=== PATIENT | female | born 1960 | race Caucasian/White ===

== ENCOUNTER 2020-05-20 18:35 | Emergency (ER) | payer BC, OTHER ==
[2020-05-20 18:42] VITALS: RESP 18; TEMP 97.6
[2020-05-20] MEDS ORDERED: MORPHINE SULFATE 4 MG/ML SYRINGE IVP STA (19:23)
--- NOTE | 2020-05-20 19:52 | ED ---
Lower Extremity Injury HPI - General Chief Complaint: Extremity Injury, Lower Stated Complaint: Fall Source: EMS Mode of arrival: EMS Limitations: no limitations - History of Present Illness Initial Comments: 59-year-old female with PMH, HTN, HLD, obesity, objective sleep apnea presenting today for chief complaint of right knee pain after fall. Patient states that she is attempting to get into her truck when her foot slipped off of the step and onto the ground. She states that she got up and felt like the knee buckled she states it did not dislocate that it felt unstable. Patient sates she was unable to weight-bear she's had in the truck was able to moves her called 911 to transport her to the hospital for evaluation. Patient denies any numbness tingling or loss of sensation coolness pill or of the extremity. She states she is not able to extend on her own. Patient denies any injury to the head and neck abdomen chest. Patient denies ankle or foot pain, denies pain in hip or thigh. Patient has no additional complaints. appears well on arrival in no distress. initially REFUSED PAIN MEDICATIONS, staets she wanted XR results first. - Related Data Home Medications Medication Instructions Recorded Confirmed Levothyroxine Sodium [Synthroid] 150 mcg PO DIRECTED 02/15/14 04/11/15 Multivitamins, Thera [Multivitamin] 1 tab PO DAILY 07/05/14 04/11/15 Calcium Carbonate [Calcium] 500 mg PO BID 09/06/14 04/11/15 Levothyroxine Sodium [Levoxyl] 135 mcg PO DIRECTED 09/06/14 04/11/15 Ergocalciferol [Vitamin D2] 5,000 unit PO DAILY 04/11/15 04/11/15 Previous Rx's Medication Instructions Recorded Loratadine-Pseudoeph 5-120 mg 1 each PO Q12HR #30 tab 12/06/14 [Claritin-D 12 HR] Omeprazole [PriLOSEC] 40 mg PO AC-BRKFST #90 cap 12/06/14 Vitamin A 8,000 unit PO DAILY #30 capsule 03/10/15 Loratadine-Pseudoeph 5-120 mg 1 each PO Q12HR #30 tab 04/11/15 [Claritin-D 12 HR] Omeprazole [PriLOSEC] 40 mg PO AC-BRKFST #90 cap 05/11/15 Allergies Allergy/AdvReac Type Severity Reaction Status Date / Time Egg Derived Allergy Rash/Hives Verified 04/11/15 14:18 indomethacin [From Indocin] Allergy Unknown Verified 04/11/15 14:18 indomethacin sodium Allergy Unknown Verified 04/11/15 14:18 [From Indocin] orange juice [[place] Juice] Allergy Swelling Verified 04/11/15 14:18 penicillinase [Penicillinase] Allergy Rash/Hives Verified 04/11/15 14:18 beef derived (bovine) AdvReac Dyspnea Verified 04/11/15 14:18 chocolate flavor AdvReac Dyspnea Verified 04/11/15 14:18 Review of Systems ROS Statement: Those systems with pertinent positive or pertinent negative responses have been documented in the HPI. ROS Other: All systems not noted in ROS Statement are negative. Past Medical History Past Medical History: Asthma, GERD/Reflux, Hyperlipidemia, Hypertension, Osteoarthritis (OA), Sleep Apnea/CPAP/BIPAP Additional Past Medical History / Comment(s): Other HX: Obesity, partially paralized vocal cord, vertigo, PAST HX ASTHMA History of Any Multi-Drug Resistant Organisms: None Reported Past Surgical History: Bariatric Surgery, Section, Hysterectomy, Orthopedic Surgery Additional Past Surgical History / Comment(s): 06/04/14 Laparoscopic sleeve gastrectomy. thyroidectomy, lt knee surgery/meniscus repair, left shoulder torn rotator cuff, Gastric sleeve 06/10/14 Past Anesthesia/Blood Transfusion Reactions: Motion Sickness Past Psychological History: No Psychological Hx Reported Smoking Status: Never smoker Past Alcohol Use History: Occasional Past Drug Use History: None Reported - Past Family History Mother Family Medical History: Diabetes Mellitus, GERD/Reflux, Hypertension Father Family Medical History: Coronary Artery Disease (CAD), GERD/Reflux, Hypertension General Exam - General Exam Comments Initial Comments: General: The patient is awake and alert, in no distress Eye: Pupils are equal, round and reactive to light, extra-ocular movements are intact. No nystagmus. There is normal conjunctiva bilaterally. No signs of icterus. Ears, nose, mouth and throat: There are moist mucous membranes and no oral lesions. Neck: The neck is supple, there is no tenderness or JVD. Cardiovascular: There is a regular rate and rhythm. No murmur, rub or gallop is appreciated. Respiratory: Lungs are clear to auscultation, respirations are non-labored, breath sounds are equal. No wheezes, stridor, rales, or rhonchi. Musculoskeletal: On extraction of the knees bilaterally. Equal no gross deformity. Patient cannot extend the right knee no pedal patient of the medial or lateral malleolus. No pain along the anterior posterior thigh no hip pain to palpation or compression. Strength 5/5 at the foot and ankle. Sensation intact proximal and distal to injury site. Radial and DP pulses equal bilaterally 2+. Neurological: A&O x 3. CN II-XII intact grossly, There are no obvious motor or sensory deficits. Coordination appears grossly intact. Speech is normal. Skin: Skin is warm and dry and no rashes or lesions are noted. Psychiatric: Cooperative, appropriate mood & affect, normal judgment. Limitations: no limitations Course Vital Signs 05/20/20 18:37 Temperature 97.6 F Pulse Rate 100 Respiratory 18 Rate Blood Pressure 148/90 O2 Sat by Pulse 95 Oximetry Medical Decision Making - Medical Decision Making 59yo female presenting for cc of right knee pain. Patient denies dislocation. Patient neurovascularly intact. Imaging studies revealed a lateral depressed tibial plateau fracture, the fracture does extend distally. This images personally read and reviewed by attending provider, as well as our on-call orthopedic surgeon Dr. Sheth, who recommended transfer to [facility]. Patient agreeable to transfer. Placed in knee immobilizer, remains neurovascularly intact and was discharged appearing well The patient refused pain medications but was willing to accept that after imaging studies resulted. Disposition Clinical Impression: Tibial plateau fracture, right, Fall Disposition: TRANSFER TO PSYCH HOSP/UNIT Condition: Stable Is patient prescribed a controlled substance at d/c from ED?: No Referrals: Javier Raza DO [Primary Care Provider] - 1-2 days Time of Disposition: 19:51 Decision to Admit Reason: Admit from EC Decision Date: 05/20/20 Decision Time: 19:51
--- NOTE | 2020-05-20 19:57 | XR ---
EXAMINATION TYPE: XR knee complete RT DATE OF EXAM: 05/20/2020 COMPARISON: NONE HISTORY: Knee pain. Fall. TECHNIQUE: 3 views FINDINGS: There is vertical fracture through the lateral tibial plateau. There is no significant disp lacement. There is mild depression of the central fragment 5 mm. There is knee joint effusion. Patell a is intact. Medial joint space appears intact. IMPRESSION: Impacted lateral tibial plateau fracture with also vertical fracture through the lateral tibial condyle.
[2020-05-20 19:59] VITALS: BP 142/71; PULSE 89
== END 2020-05-20 20:43 ==
LOC: EC 18:35
DX: S82.141A Displaced bicondylar fracture of right tibia, initial encounter for closed fracture (principal); G47.33 Obstructive sleep apnea (adult) (pediatric); Z99.89 Dependence on other enabling machines and devices; Z90.710 Acquired absence of both cervix and uterus; Z90.89 Acquired absence of other organs; Z88.0 Allergy status to penicillin; Z88.1 Allergy status to other antibiotic agents; Z91.012 Allergy to eggs; Z91.018 Allergy to other foods; W01.0XXA Fall on same level from slipping, tripping and stumbling without subsequent striking against object, initial encounter
CPT/HCPCS: 73562; 99284; 96374; J2270

== ENCOUNTER → 2021-10-21 | Outpatient (CLI) | payer BC ==
[2021-10-21 08:56] LABS: Appearance,Urine Cloudy (Clear); Bacteria,Urine Rare /hpf; Bilirubin,Urine Negative (Negative); Blood,Urine Negative (Negative); Color,Urine Light Yellow; Glucose,Urine (UA) Negative (Negative); Ketones,Urine Negative (Negative); Leukocyte Esterase,Urine Moderate (Negative); Mucus,Urine Rare /hpf; Nitrite,Urine Negative (Negative); Protein,Urine Negative (Negative); RBC,Urine <1 /hpf (0-5); Specific Gravity,Urine 1.016 (1.001-1.035); Squamous Epithelial Cell,Urine 1 /hpf (0-4); Urobilinogen,Urine <2.0 mg/dL (<2.0); WBC,Urine 11 /hpf (0-5)
[2021-10-21 10:36] LABS: HCT 41.9 % (37.2-46.3); HGB 13.5 g/dL (12.0-15.0); MCH 28.7 pg (27.0-32.0); MCHC 32.2 g/dL (32.0-37.0); Mean Platelet Volume 11.1 fL (9.5-12.2); NRBC Per 100 WBC 0 /100 WBCS (0.0-0.0); Platelet Count 244 X 10*3/uL (140-440); RBC 4.71 X 10*6/uL (4.10-5.20); RDW 13.1 % (11.5-14.5); WBC 4.42 X 10*3/uL (4.50-10.00)
[2021-10-21 10:58] LABS: ALT 13 U/L (8-44); AST 16 U/L (13-35); African American GFR (CKD) 113.2 (60.0-200.0); Albumin 4.6 g/dL (3.8-4.9); Albumin/Globulin Ratio 1.92 (1.60-3.17); Alkaline Phosphatase 86 U/L (41-126); Blood Urea Nitrogen 15.9 mg/dL (9.0-27.0); Calcium 9.5 mg/dL (8.7-10.3); Carbon Dioxide 26.7 mmol/L (20.0-27.5); Chloride 102 mmol/L (96-109); Chol/HDL Ratio 3.76 Ratio; Globulin 2.4 g/dL (1.6-3.3); Glucose 85 mg/dL (70-110); LDL Cholesterol,Calculated 142.6 mg/dL (0.0-131.0); Non-African American GFR(CKD) 97.7 (60.0-200.0); Potassium 4.4 mmol/L (3.5-5.5); Sodium 139 mmol/L (135-145); VLDL Calculation 17.42 mg/dL (5.00-40.00)
== END | disposition home or self-care (01) ==
LOC: LABWHC1 07:04
PROVIDERS: ATTEND Family Medicine
DX: Z00.00 Encounter for general adult medical examination without abnormal findings (principal); E03.9 Hypothyroidism, unspecified; E66.9 Obesity, unspecified
CPT/HCPCS: 36415; 80053; 80061; 81001; 82306; 83036; 84439; 84443; 85027; 87086

== ENCOUNTER → 2022-04-14 | Outpatient (CLI) | payer BC ==
[2022-04-14 10:49] LABS: Basophils # (A) 0.03 X 10*3/uL (0.00-0.10); Basophils % (A) 0.7 %; Eosinophils # (A) 0.13 X 10*3/uL (0.04-0.35); Eosinophils % (A) 3.1 %; HCT 39.4 % (37.2-46.3); HGB 12.6 g/dL (12.0-15.0); Immature Grans, Automated 0 %; Lymphocytes # (A) 0.97 X 10*3/uL (0.90-5.00); Lymphocytes % (A) 22.9 %; MCH 28.6 pg (27.0-32.0); MCV 89.5 fL (80.0-97.0); Mean Platelet Volume 10.8 fL (9.5-12.2); Monocytes # (A) 0.33 X 10*3/uL (0.20-1.00); Monocytes % (A) 7.8 %; NRBC Per 100 WBC 0 /100 WBCS (0.0-0.0); Neutrophils # (A) 2.77 X 10*3/uL (1.80-7.70); Neutrophils % (A) 65.5 %; Platelet Count 257 X 10*3/uL (140-440); RDW 14.1 % (11.5-14.5); WBC 4.23 X 10*3/uL (4.50-10.00)
[2022-04-14 11:22] LABS: Erythrocyte Sedimentation Rate 7 mm/Hr (0-30)
[2022-04-14 11:42] LABS: African American GFR (CKD) 112.1 (60.0-200.0); Albumin 4.4 g/dL (3.8-4.9); Albumin/Globulin Ratio 2.12 (1.60-3.17); Anion Gap 11.2 mmol/L (10.00-18.00); BUN/Creat Ratio 18.45 Ratio (12.00-20.00); Blood Urea Nitrogen 11.4 mg/dL (9.0-27.0); Calcium 9.5 mg/dL (8.7-10.3); Carbon Dioxide 26.3 mmol/L (20.0-27.5); Globulin 2.1 g/dL (1.6-3.3); Magnesium 2.3 mg/dL (1.5-2.4); Non-African American GFR(CKD) 96.7 (60.0-200.0); Potassium 5.3 mmol/L (3.5-5.5); T4, Free (Free Thyroxine) 1.49 ng/dL (0.800-1.800); Total Bilirubin 0.4 mg/dL (0.30-1.20); Total Protein 6.4 g/dL (6.2-8.2)
== END | disposition home or self-care (01) ==
LOC: LABWHC1 07:04
PROVIDERS: ATTEND Family Medicine
DX: E03.9 Hypothyroidism, unspecified (principal); E66.9 Obesity, unspecified; E66.3 Overweight; M79.10 Myalgia, unspecified site
CPT/HCPCS: 36415; 80053; 82306; 82550; 82607; 83036; 83735; 84439; 84443; 85025; 85652

== ENCOUNTER → 2022-04-28 | Outpatient (CLI) | payer BC ==
[2022-04-29 01:38] LABS: Basophils # (A) 0.04 X 10*3/uL (0.00-0.10); Basophils % (A) 0.7 %; Eosinophils # (A) 0.08 X 10*3/uL (0.04-0.35); Eosinophils % (A) 1.4 %; HCT 42.2 % (37.2-46.3); HGB 13.7 g/dL (12.0-15.0); Immature Grans, Automated 0.4 %; Lymphocytes # (A) 1.54 X 10*3/uL (0.90-5.00); Lymphocytes % (A) 27.6 %; MCH 29.6 pg (27.0-32.0); MCHC 32.5 g/dL (32.0-37.0); MCV 91.1 fL (80.0-97.0); Mean Platelet Volume 10.9 fL (9.5-12.2); Monocytes # (A) 0.44 X 10*3/uL (0.20-1.00); Monocytes % (A) 7.9 %; NRBC Per 100 WBC 0 /100 WBCS (0.0-0.0); Neutrophils # (A) 3.46 X 10*3/uL (1.80-7.70); Platelet Count 283 X 10*3/uL (140-440); RBC 4.63 X 10*6/uL (4.10-5.20); RDW 14.2 % (11.5-14.5); WBC 5.58 X 10*3/uL (4.50-10.00)
== END | disposition home or self-care (01) ==
LOC: LABWHC1 16:16
PROVIDERS: ATTEND Family Medicine
DX: R89.9 Unspecified abnormal finding in specimens from other organs, systems and tissues (principal)
CPT/HCPCS: 36415; 85025

== ENCOUNTER → 2022-06-22 | Outpatient (CLI) | payer BC ==
[2022-06-23 23:16] LABS: Albumin 4.43 g/dL (3.80-4.90)
== END | disposition home or self-care (01) ==
LOC: LABWHC1 07:24
PROVIDERS: ATTEND Psychiatry & Neurology Neurology
DX: G62.9 Polyneuropathy, unspecified (principal); R53.1 Weakness; R25.2 Cramp and spasm
CPT/HCPCS: 36415; 82550; 84165; 84207; 86334

== ENCOUNTER → 2022-08-05 | Outpatient (CLI) | payer BC ==
--- NOTE | 2022-08-05 11:09 | MR ---
EXAMINATION TYPE: MR lumbar spine wo con DATE OF EXAM: 08/05/2022 COMPARISON: NONE HISTORY: Low back pain into rt buttocks, radiculopathy s1 TECHNIQUE: T1 and T2 axial and sagittal images of the lumbar spine are submitted. FINDINGS: There is no abnormal signal seen within the visualized spinal cord or paraspinal soft tissu es. There is severe scoliosis of the spine. Incidental note made of small Tarlov cysts sacral levels. At T12-L1 there is degenerative disc disease left paracentral and lateral disc protrusion with mild l eft foraminal encroachment and mild effacement of thecal sac. At L1-2 there is moderate to severe degenerative disc disease and moderate right facet arthropathy. M ild right-sided foraminal encroachment. No canal stenosis or discrete disc herniation. At L2-3 there is moderate degenerative disc disease. There is right paracentral lateral disc bulging with moderate right-sided foraminal encroachment. Mild left foraminal protrusion. There is borderline central stenosis with effacement of the anterior margin of thecal sac. At L3-4 there is a Schmorl's nodes involving the endplates of the disc space. Moderate degenerative d isc disease. There is more advanced facet arthropathy and ligamentum flavum hypertrophy. No canal zandra nosis or discrete herniation. Discogenic marrow changes are seen and there is mild left and moderate right foraminal encroachment. Very mild right-sided lateral disc bulging At L4-5 there is vertebral body hemangioma of L4 with mild degenerative disc disease. However there i s advanced facet arthropathy but no disc herniation or canal stenosis. Neural foramina remain patent. At L5-S1 there is there is a grade 1 anterolisthesis of L5 relative to S1. There is moderate to sever e bilateral foraminal encroachment. There is advanced facet arthropathy. Cannot exclude pars defects bilaterally. No discrete disc herniation. IMPRESSION: 1. Multilevel moderate to severe degenerative disc disease most marked at L2-L3. 2. An L5-S1 there is a grade 1 anterolisthesis of L5 relative to S1. There is moderate to severe bila teral foraminal encroachment. 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 3. Multilevel disc bulging and additional mild foraminal encroachment as discussed above. No evidence of canal stenosis.
== END | disposition home or self-care (01) ==
LOC: RADMRIMAIN 09:32
PROVIDERS: ATTEND Psychiatry & Neurology Neurology
DX: M51.16 Intervertebral disc disorders with radiculopathy, lumbar region (principal); M43.16 Spondylolisthesis, lumbar region; M43.17 Spondylolisthesis, lumbosacral region
CPT/HCPCS: 72148

== ENCOUNTER → 2022-11-09 | Outpatient (CLI) | payer BC ==
[2022-11-09 11:06] LABS: HGB 13.3 d/dL (12.0-15.0); MCH 29.8 pg (27.0-32.0); MCHC 33.3 d/dL (32.0-37.0); MCV 89.5 FL (80.0-97.0); Mean Platelet Volume 10.5 FL (9.5-12.2); NRBC Per 100 WBC 0 X 10*3/uL (0.00-0.01); Platelet Count 229 X 10*3/uL (140-440); RBC 4.47 X 10*6/uL (4.10-5.20); RDW 12.9 % (11.5-14.5); WBC 4.78 X 10*3/uL (4.50-10.00)
[2022-11-09 11:43] LABS: ALT 18 U/L (8-44); Blood Urea Nitrogen 11.7 mg/dL (9.0-27.0); Calcium 9.1 mg/dL (8.7-10.3); Chloride 103 mmol/L (96-109); Chol/HDL Ratio 3.58 Ratio; Glucose 85 mg/dL (70-110); LDL Cholesterol,Calculated 128.2 mg/dL (0.0-131.0); Potassium 4.5 mmol/L (3.5-5.5); Sodium 141 mmol/L (135-145); T4, Free (Free Thyroxine) 1.81 ng/dL (0.80-1.80)
[2022-11-09 11:54] LABS: Appearance,Urine Clear (Clear); Bilirubin,Urine Negative (Negative); Blood,Urine Negative (Negative); Color,Urine Yellow (Yellow); Ketones,Urine Negative (Negative); Nitrite,Urine Negative (Negative); Specific Gravity,Urine 1.028 (1.001-1.030)
== END | disposition home or self-care (01) ==
LOC: LABWHC1 07:12
PROVIDERS: ATTEND Family Medicine
DX: Z00.00 Encounter for general adult medical examination without abnormal findings (principal); E03.9 Hypothyroidism, unspecified; E66.9 Obesity, unspecified; E83.42 Hypomagnesemia
CPT/HCPCS: 36415; 80048; 80061; 81003; 82306; 83036; 83735; 84439; 84443; 84460; 85027

== ENCOUNTER → 2022-11-18 | Outpatient (CLI) | payer BC | END | disposition home or self-care (01) | LOC: LABWHC1 07:38 | PROVIDERS: ATTEND Family Medicine | DX: E03.9 Hypothyroidism, unspecified (principal) | CPT/HCPCS: 36415; 84439 ==

== ENCOUNTER → 2023-05-04 | Outpatient (CLI) | payer BC ==
[2023-05-04 13:05] LABS: Basophils # (A) 0.05 X 10*3/uL (0.00-0.10); Basophils % (A) 1.1 %; Eosinophils % (A) 2.2 %; HCT 41.8 % (37.2-46.3); HGB 13.7 g/dL (12.0-15.0); Lymphocytes # (A) 1.09 X 10*3/uL (0.90-5.00); Lymphocytes % (A) 24.5 %; MCH 29.3 pg (27.0-32.0); MCHC 32.8 g/dL (32.0-37.0); MCV 89.5 FL (80.0-97.0); Mean Platelet Volume 10.8 FL (9.5-12.2); Monocytes # (A) 0.36 X 10*3/uL (0.20-1.00); Monocytes % (A) 8.1 %; NRBC Per 100 WBC 0 X 10*3/uL (0.00-0.01); Neutrophils # (A) 2.84 X 10*3/uL (1.80-7.70); Neutrophils % (A) 63.9 %; Platelet Count 258 X 10*3/uL (140-440); RBC 4.67 X 10*6/uL (4.10-5.20); RDW 12.6 % (11.5-14.5); WBC 4.45 X 10*3/uL (4.50-10.00)
[2023-05-04 13:21] LABS: Erythrocyte Sedimentation Rate 6 mm/Hr (0-30)
[2023-05-04 21:06] LABS: T4, Free (Free Thyroxine) 1.75 ng/dL (0.80-1.80)
[2023-05-04 21:17] LABS: Blood Urea Nitrogen 14.5 mg/dL (9.0-27.0); Calcium 9.3 mg/dL (8.7-10.3); Carbon Dioxide 25.7 mmol/L (21.6-31.8); Chloride 104 mmol/L (96-109); Glucose 89 mg/dL (70-110); Potassium 4.7 mmol/L (3.5-5.5); Sodium 142 mmol/L (135-145)
== END | disposition home or self-care (01) ==
LOC: LABWHC1 07:01
PROVIDERS: ATTEND Family Medicine
DX: R25.2 Cramp and spasm (principal); E66.9 Obesity, unspecified; E03.9 Hypothyroidism, unspecified
CPT/HCPCS: 36415; 80048; 82306; 82550; 83036; 83735; 84439; 84443; 84481; 85025; 85652; 86140

== ENCOUNTER → 2023-12-13 | Outpatient (CLI) | payer BC ==
[2023-12-13 15:26] LABS: Appearance,Urine Clear (Clear); Bilirubin,Urine Negative (Negative); Blood,Urine Negative (Negative); Color,Urine Yellow (Yellow); Ketones,Urine Negative (Negative); Nitrite,Urine Negative (Negative); PH, Urine 6.5; Specific Gravity,Urine 1.006 (1.001-1.030); Urobilinogen,Urine 0.2 E.U./DL
[2023-12-13 15:28] LABS: HCT 40.5 % (37.2-46.3); HGB 13.5 g/dL (12.0-15.0); MCH 29.7 pg (27.0-32.0); MCHC 33.3 g/dL (32.0-37.0); MCV 89.2 FL (80.0-97.0); Mean Platelet Volume 10.8 FL (9.5-12.2); NRBC Per 100 WBC 0 X 10*3/uL (0.00-0.01); Platelet Count 259 X 10*3/uL (140-440); RBC 4.54 X 10*6/uL (4.10-5.20); RDW 12.9 % (11.5-14.5); WBC 4.99 X 10*3/uL (4.50-10.00)
[2023-12-13 15:30] LABS: Bacteria,Urine None Seen (None Seen)
[2023-12-13 16:07] LABS: ALT 13 U/L (8-44); AST 15 U/L (13-35); Albumin 4.4 g/dL (3.8-4.9); Albumin/Globulin Ratio 1.83 Ratio (1.60-3.17); Alkaline Phosphatase 94 U/L (41-126); Blood Urea Nitrogen 13.8 mg/dL (9.0-27.0); Calcium 9.5 mg/dL (8.7-10.3); Carbon Dioxide 24.2 mmol/L (21.6-31.8); Chloride 101 mmol/L (96-109); Chol/HDL Ratio 3.57 Ratio; Globulin 2.4 g/dL (1.6-3.3); Glucose 90 mg/dL (70-110); LDL Cholesterol,Calculated 147.4 mg/dL (0.0-131.0); Potassium 4.8 mmol/L (3.5-5.5); Sodium 138 mmol/L (135-145); T4, Free (Free Thyroxine) 1.51 ng/dL (0.80-1.80); Total Bilirubin 0.5 mg/dL (0.3-1.2); Total Protein 6.8 g/dL (6.2-8.2)
== END | disposition home or self-care (01) ==
LOC: LABWHC1 09:47
PROVIDERS: ATTEND Family Medicine
DX: Z00.00 Encounter for general adult medical examination without abnormal findings (principal); E03.9 Hypothyroidism, unspecified; G47.62 Sleep related leg cramps
CPT/HCPCS: 36415; 80053; 80061; 81001; 82306; 83036; 83735; 84439; 84443; 85027